=== PATIENT | male | born 1965 | race Caucasian/White ===

== ENCOUNTER 2023-09-11 17:23 | Emergency (ER) | payer SELFPAY ==
[2023-09-11] MEDS ORDERED: Metoclopramide 10 MG/2 ML SDV IVPUSH ONE (18:28)
[2023-09-11] MEDS ORDERED: HYDROmorphone 1 MG/ML Syringe IVPUSH ONE (18:28)
[2023-09-11] MEDS ORDERED: Dextrose 5%-0.9% NaCl 1,000 ML IV SCH (18:30)
[2023-09-11] MEDS ORDERED: Ondansetron 4 MG/2 ML SDV IVPUSH ONE (20:19)
[2023-09-11] MEDS ORDERED: Prochlorperazine 10 MG/2 ML SDV IVPUSH ONE (22:29)
== END 2023-09-12 07:31 | disposition home or self-care (01) ==
LOC: JD.ED 17:23
DX: S06.0X0A Concussion without loss of consciousness, initial encounter (principal); S00.03XA Contusion of scalp, initial encounter; E66.9 Obesity, unspecified; Z68.41 Body mass index [BMI] 40.0-44.9, adult; Z88.2 Allergy status to sulfonamides; W01.0XXA Fall on same level from slipping, tripping and stumbling without subsequent striking against object, initial encounter
CPT/HCPCS: 70450; 71250; 72125; 96361; 96374; 96375; 99283; J0780; J1170; J2405; J2765; J7042

== ENCOUNTER 2023-09-27 14:16 | Emergency (ER) | payer OTHER ==
[2023-09-27] MEDS ORDERED: Ondansetron 4 MG/2 ML SDV IVPUSH ONE (14:49)
[2023-09-27] MEDS ORDERED: Sodium Chloride 0.9% 10 ML Syringe FLUSH PRN (14:49)
[2023-09-27] MEDS ORDERED: Meclizine 25 MG Tab PO ONE (14:50)
[2023-09-27] MEDS ORDERED: Sodium Chloride 0.9% 1,000 ML IV SCH (15:00)
[2023-09-27 15:29] LABS: BASOPHILS ABSOLUTE AUTO 0.1 K/mm3 (0.0-0.2); EOSINOPHILS ABSOLUTE AUTO 0.1 K/mm3 (0.0-0.4); EOSINOPHILS PERCENT AUTO 2.3 % (0.0-6.0); HEMATOCRIT 43.5 % (42.0-52.0); HEMOGLOBIN 14.4 gm/dl (14.0-18.0); IMMATURE GRAN ABSOLUTE AUTO 0.01 K/mm3 (0.00-0.05); IMMATURE GRAN PERCENT AUTO 0.2 % (0.0-0.4); LYMPHOCYTES ABSOLUTE AUTO 1.3 K/mm3 (1.0-4.8); LYMPHOCYTES PERCENT AUTO 27.3 % (24.0-44.0); MEAN CORPUSCULAR HEMOGLOBIN 26.2 pg (28.0-32.0); MEAN CORPUSCULAR HGB CONC 33.1 g/dl (32.0-36.0); MEAN CORPUSCULAR VOLUME 79.2 fl (83.0-99.0); MEAN PLATELET VOLUME 9.5 fl (9.4-12.4); MONOCYTES ABSOLUTE AUTO 0.4 K/mm3 (0.0-0.8); MONOCYTES PERCENT AUTO 8.8 % (0.0-8.0); NEUTROPHILS ABSOLUTE AUTO 2.9 K/mm3 (1.8-7.7); NEUTROPHILS PERCENT AUTO 60.4 % (41.0-71.0); PLATELET COUNT,PLT 203 K/mm3 (150-400); RED BLOOD CELL COUNT 5.49 M/mm3 (4.52-5.90); WHITE BLOOD CELL COUNT,WBC 4.79 K/mm3 (3.9-11.3)
[2023-09-27 16:06] LABS: A/G RATIO 1.2 (1-2); ALBUMIN 3.9 g/dl (3.4-5.0); ANION GAP 14.9 (5-15); BILIRUBIN TOTAL 0.4 mg/dL (0.2-1.0); CALCIUM 8.9 mg/dL (8.5-10.1); CREATININE 1.4 mg/dL (0.7-1.3); EST CRCL DRUG DOSING (CG) 58.22 mL/min; POTASSIUM,K 3.9 mEq/L (3.5-5.1); PROTEIN TOTAL,TP 7.2 g/dl (6.4-8.2)
== END 2023-09-27 17:30 | disposition home or self-care (01) ==
LOC: JD.ED 14:16
DX: S06.0X0A Concussion without loss of consciousness, initial encounter (principal); S05.32XA Ocular laceration without prolapse or loss of intraocular tissue, left eye, initial encounter; S05.31XA Ocular laceration without prolapse or loss of intraocular tissue, right eye, initial encounter; R42 Dizziness and giddiness; E66.9 Obesity, unspecified; Z68.41 Body mass index [BMI] 40.0-44.9, adult; Z88.2 Allergy status to sulfonamides; W18.30XA Fall on same level, unspecified, initial encounter
CPT/HCPCS: 36415; 70450; 80053; 85025; 96361; 96374; 99284; A9270; J2405; J3490; J7030

== ENCOUNTER 2023-10-30 06:15 | Day surgery (SDC) | payer OTHER ==
[~2023-10-30 06:15] MED LIST: Acetaminophen 325 MG Tab PO SCH; Lactated Ringers 1,000 ML IV SCH; Morphine 8 MG, EPINEPHrine 0.3 MG, Cefuroxime 750 MG, Ketorolac 30 MG, Sodium Chloride ... PRN; Pregabalin 25 MG Cap PO SCH; Sodium Chloride 0.9% 10 ML Syringe FLUSH PRN; Sodium Chloride 0.9% 10 ML Syringe FLUSH SCH; oxyCODONE ER 10 MG TAB.ER PO SCH
[2023-10-30] MEDS ORDERED: Vancomycin 1 GM SDV ONE (06:16)
[2023-10-30] MEDS ORDERED: Tranexamic Acid 1,000 MG/10 ML Vial ONE (06:16)
[2023-10-30] MEDS ORDERED: Albuterol 0.083% 2.5 MG/3 ML Neb Soln ONE (06:32)
[2023-10-30] MEDS ORDERED: Propofol 200 MG/20 ML SDV ONE ×3 (06:33→08:30)
[2023-10-30] MEDS ORDERED: Midazolam 1 MG/ML 2 ML SDV ONE (06:33)
[2023-10-30] MEDS ORDERED: fentaNYL 100 MCG/2 ML SDV ONE (06:33)
[2023-10-30] MEDS ORDERED: Lidocaine 1% 4 ML ONE (06:34)
[2023-10-30] MEDS ORDERED: ceFAZolin 2 GM Vial ONE (06:34)
[2023-10-30] MEDS ORDERED: HYDROmorphone 0.5 MG/0.5 ML Syringe IVPUSH PRN (06:50)
[2023-10-30] MEDS ORDERED: fentaNYL 100 MCG/2 ML SDV IVPUSH PRN (06:50)
[2023-10-30] MEDS ORDERED: Ondansetron 4 MG/2 ML SDV IVPUSH PRN (06:50)
[2023-10-30] MEDS ORDERED: Phenylephrine 1% 10 MG/ML SDV ONE (08:14)
[2023-10-30] MEDS ORDERED: Lactated Ringers 1,000 ML ONE (08:18)
[2023-10-30] MEDS ORDERED: Ketorolac 30 MG/ML SDV ONE (08:41)
[2023-10-30] MEDS ORDERED: oxyCODONE 5 MG Tab PO PRN (09:34)
== END 2023-10-30 13:15 | disposition home or self-care (01) ==
LOC: JD.SDS 06:15
PROVIDERS: ATTEND Orthopaedic Surgery
DX: M16.11 Unilateral primary osteoarthritis, right hip (principal); Z21 Asymptomatic human immunodeficiency virus [HIV] infection status; F32.A Depression, unspecified; E66.9 Obesity, unspecified; Z68.41 Body mass index [BMI] 40.0-44.9, adult; E78.5 Hyperlipidemia, unspecified; Z79.899 Other long term (current) drug therapy
CPT/HCPCS: 0055T; 27130; 36415; 73501; 86850; 86900; 86901; 97116; 97161; A9270; C1713; C1776; J0171; J0690; J0697; J1885; J2250; J2270; J2371; J2704; J3010; J3370; J7030; J7120; 01214; J3490; J7620-GY